=== PATIENT | male | born 2000 | race Two or more races ===

== ENCOUNTER 2019-05-07 18:02 | Emergency (ER) | payer OTHER ==
[~2019-05-07] VITALS: Ht 182.9 cm; Wt 61.2 kg
[2019-05-07] MEDS ORDERED: DULOXETINE HCL40 MG (18:30)
[2019-05-07] MEDS ORDERED: CLONAZEPAM1 MG (18:30)
== END 2019-05-07 19:18 | disposition home or self-care (01) ==
LOC: ER 18:02
DX: S91.322A Laceration with foreign body, left foot, initial encounter (principal); W45.8XXA Other foreign body or object entering through skin, initial encounter; Y93.89 Activity, other specified; Y92.89 Other specified places as the place of occurrence of the external cause; Y99.8 Other external cause status